=== PATIENT | female | born 1975 | race Caucasian/White ===

== ENCOUNTER 2020-11-05 17:50 | Emergency (ER) | payer BC ==
--- NOTE | 2020-11-05 18:53 | PCM.SN.2 ---
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
[2020-11-05] MEDS: metroNIDAZOLE 500 MG Tab PO ONE (20:50)
--- NOTE | 2020-11-05 22:15 | EDM.PDOC ---
ED HPI GENERAL MEDICAL PROBLEM - General Chief Complaint: ACUTE CARE SURGEON Problem Stated Complaint: UTERINE BLEEDING Time Seen by Provider: 11/05/20 19:10 Source of Information: Reports: Patient History Limitations: Reports: No Limitations - History of Present Illness INITIAL COMMENTS - FREE TEXT/NARRATIVE: Patient presented to the ED with heavy vaginal bleeding which started yesterday. This is her second heavy meses radha month. She also c/o foul smelling vaginal discharge. She denies any fever,chills, N/V, or abdominal pain. - Related Data Allergies Allergy/AdvReac Type Severity Reaction Status Date / Time No Known Allergies Allergy Verified 11/05/20 19:40 Home Meds: Home Meds Citalopram Hydrobromide [Celexa] 20 mg PO BEDTIME 11/05/20 [History] Furosemide [Lasix] 20 mg PO DAILY 11/05/20 [History] Oxybutynin 10 mg PO BEDTIME 11/05/20 [History] medroxyPROGESTERone [Provera] 10 mg PO DAILY #10 tab 11/05/20 [Rx] metroNIDAZOLE [Flagyl] 500 mg PO TID #30 tab 11/05/20 [Rx] Past Medical History - Past Health History Medical/Surgical History: Denies Medical/Surgical History Psychiatric History: Reports: Depression Social & Family History - Tobacco Use Tobacco Use Status *Q: Never Tobacco User - Recreational Drug Use Recreational Drug Use: No ED ROS GENERAL - Review of Systems Review Of Systems: See Below Constitutional: Reports: No Symptoms HEENT: Reports: No Symptoms Respiratory: Reports: No Symptoms Cardiovascular: Reports: No Symptoms Endocrine: Reports: No Symptoms GI/Abdominal: Reports: No Symptoms : Reports: Other (heavy menstrual bleeding) Musculoskeletal: Reports: No Symptoms Skin: Reports: No Symptoms ED EXAM, GENERAL - Physical Exam Exam: See Below Exam Limited By: No Limitations General Appearance: Alert, No Apparent Distress Eye Exam: Bilateral Eye: PERRL Nose: Normal Inspection, Normal Mucosa, No Blood Throat/Mouth: Normal Inspection, Normal Lips, Normal Teeth Head: Atraumatic, Normocephalic Neck: Normal Inspection, Supple, Non-Tender, Full Range of Motion Respiratory/Chest: No Respiratory Distress, Lungs Clear, Normal Breath Sounds Cardiovascular: Normal Peripheral Pulses, Regular Rate, Rhythm, No Edema, No Gallop GI/Abdominal: Normal Bowel Sounds, Soft, Non-Tender, No Organomegaly Back Exam: Normal Inspection, Full Range of Motion Extremities: Normal Inspection, Normal Range of Motion, Non-Tender Neurological: Alert Course - Vital Signs Text/Narrative:: Lab results was discussed with patient Flagyl 500 mg PO x1 Last Recorded V/S: Last Vital Signs Temp 36.7 C 11/05/20 17:50 Pulse 65 11/05/20 17:50 Resp 17 11/05/20 17:50 BP 148/95 H 11/05/20 17:50 Pulse Ox 100 11/05/20 17:50 - Orders/Labs/Meds Labs: Laboratory Tests 11/05/20 11/05/20 11/05/20 Range/Units 19:06 19:06 19:06 WBC 8.9 (3.0-10.3) x10-3/uL RBC 5.20 (3.60-5.20) x10(6)uL Hgb 12.7 (11.4-15.5) g/dL Hct 40.0 (34.2-48.2) % MCV 76.9 (76.7-100.5) fL MCH 24.4 (23.9-33.9) pg MCHC 31.7 L (31.9-34.8) g/dL RDW 16.2 (12.3-16.5) % Plt Count 248 (151-488) x10(3)uL MPV 8.1 (7.1-12.4) fL Neut % (Auto) 68.5 (30.8-76.2) % Lymph % (Auto) 22.6 (18.4-52.1) % [place] % (Auto) 7.1 (4.4-15.7) % Eos % (Auto) 1.4 (0.6-8.1) % Baso % (Auto) 0.4 (0.2-1.5) % Neut # (Auto) 6.1 (1.5-6.3) x10-3/uL Lymph # (Auto) 2.0 (1.0-4.4) x10-3/uL Wake # (Auto) 0.6 (0.3-1.0) x10-3/uL Eos # (Auto) 0.1 (0.0-0.8) x10-3/uL Baso # (Auto) 0.0 (0.0-0.1) x10-3/uL Sodium 142 (135-145) mmol/L Potassium 3.8 (3.5-5.3) mmol/L Chloride 103 (100-110) mmol/L Carbon Dioxide 30 (21-32) mmol/L BUN 16 (7-18) mg/dL Creatinine 0.8 (0.55-1.02) mg/dL Est Cr Clr Drug Dosing TNP Estimated GFR (MDRD) > 60 (>60) BUN/Creatinine Ratio 20.0 (9-20) Glucose 102 (80-116) mg/dL Calcium 8.6 (8.6-10.2) mg/dL Total Bilirubin 0.2 (0.1-1.3) mg/dL AST 17 (5-25) IU/L ALT 26 (12-36) U/L Alkaline Phosphatase 110 (56-112) IU/L C-Reactive Protein 3.7 H* (0.5-0.9) mg/dL Total Protein 7.5 (6.0-8.0) g/dL Albumin 3.5 (3.5-5.2) g/dL Globulin 4.0 g/dL Albumin/Globulin Ratio 0.9 Urine Color (YELLOW) Urine Appearance (CLEAR) Urine pH (5.0-6.5) Ur Specific [place] (1.010-1.025) Urine Protein (NEGATIVE) mg/dL Urine Glucose (UA) (NORMAL) mg/dL Urine Ketones (NEGATIVE) mg/dL Urine Occult Blood (NEGATIVE) Urine Nitrite (NEGATIVE) Urine Bilirubin (NEGATIVE) Urine Urobilinogen (NEGATIVE) mg/dL Ur Leukocyte Esterase (NEGATIVE) Urine RBC (0-5) Urine WBC (0-5) Ur Squamous Epith Cells (NS,R,O) Urine Bacteria (NS) Urine HCG, Qual (NEGATIVE) 11/05/20 11/05/20 Range/Units 19:25 19:25 WBC (3.0-10.3) x10-3/uL RBC (3.60-5.20) x10(6)uL Hgb (11.4-15.5) g/dL Hct (34.2-48.2) % MCV (76.7-100.5) fL MCH (23.9-33.9) pg MCHC (31.9-34.8) g/dL RDW (12.3-16.5) % Plt Count (151-488) x10(3)uL MPV (7.1-12.4) fL Neut % (Auto) (30.8-76.2) % Lymph % (Auto) (18.4-52.1) % Wake % (Auto) (4.4-15.7) % Eos % (Auto) (0.6-8.1) % Baso % (Auto) (0.2-1.5) % Neut # (Auto) (1.5-6.3) x10-3/uL Lymph # (Auto) (1.0-4.4) x10-3/uL [place] # (Auto) (0.3-1.0) x10-3/uL Eos # (Auto) (0.0-0.8) x10-3/uL Baso # (Auto) (0.0-0.1) x10-3/uL Sodium (135-145) mmol/L Potassium (3.5-5.3) mmol/L Chloride (100-110) mmol/L Carbon Dioxide (21-32) mmol/L BUN (7-18) mg/dL Creatinine (0.55-1.02) mg/dL Est Cr Clr Drug Dosing Estimated GFR (MDRD) (>60) BUN/Creatinine Ratio (9-20) Glucose (80-116) mg/dL Calcium (8.6-10.2) mg/dL Total Bilirubin (0.1-1.3) mg/dL AST (5-25) IU/L ALT (12-36) U/L Alkaline Phosphatase (56-112) IU/L C-Reactive Protein (0.5-0.9) mg/dL Total Protein (6.0-8.0) g/dL Albumin (3.5-5.2) g/dL Globulin g/dL Albumin/Globulin Ratio Urine Color Red (YELLOW) Urine Appearance Cloudy (CLEAR) Urine pH 5.0 (5.0-6.5) Ur Specific [place] 1.010 (1.010-1.025) Urine Protein Negative (NEGATIVE) mg/dL Urine Glucose (UA) Normal (NORMAL) mg/dL Urine Ketones Negative (NEGATIVE) mg/dL Urine Occult Blood Large H (NEGATIVE) Urine Nitrite Negative (NEGATIVE) Urine Bilirubin Negative (NEGATIVE) Urine Urobilinogen Normal (NEGATIVE) mg/dL Ur Leukocyte Esterase Negative (NEGATIVE) Urine RBC Packed H (0-5) Urine WBC 0-5 (0-5) Ur Squamous Epith Cells Few H (NS,R,O) Urine Bacteria Few H (NS) Urine HCG, Qual Negative (NEGATIVE) Meds: Medications Discontinued Medications Generic Name Dose Route Start Last Admin Trade Name Katy PRN Reason Stop Dose Admin Metronidazole 500 mg 11/05/20 20:42 11/05/20 20:50 Flagyl PO 11/05/20 20:43 500 mg ONETIME ONE Administration Departure - Departure Time of Disposition: 21:00 Disposition: Home, Self-Care 01 Condition: Good Clinical Impression: Abnormal uterine bleeding, Bacterial vaginosis - Discharge Information Prescriptions: metroNIDAZOLE [Flagyl] 500 mg PO TID #30 tab medroxyPROGESTERone [Provera] 10 mg PO DAILY #10 tab Instructions: Abnormal Uterine Bleeding, Bacterial Vaginosis, [id number] Referrals: Lorenzo Dobbins MD [Primary Care Provider] - Forms: ED Department Discharge Additional Instructions: Please read discharge instructions on abnormal uterine bleeding and bacterial vaginosis Take provera 10 mg daily for 10 days Flagyl/Metronidazole 500 mg 3 times daily for 7 days Follow up with your doctor in a week if your uterine bleeding doesn't improve with the provera Sepsis Event Note (ED) - Evaluation Sepsis Screening Result: No Definite Risk - Focused Exam Vital Signs: Vital Signs Temp Pulse Resp BP Pulse Ox 11/05/20 17:50 36.7 C 65 17 148/95 H 100
== END 2020-11-05 21:00 | disposition home or self-care (01) ==
LOC: FB.ED 17:50
DX: N93.9 Abnormal uterine and vaginal bleeding, unspecified (principal); N76.0 Acute vaginitis; B96.89 Other specified bacterial agents as the cause of diseases classified elsewhere
CPT/HCPCS: 36415; 80053; 81001; 81025; 85025; 86140; 99284; A9270; 99283

== ENCOUNTER 2023-08-10 06:27 | Day surgery (SDC) | payer OTHER ==
[~2023-08-10 06:27] MED LIST: Lactated Ringers 1,000 ML IV SCH; Sodium Chloride 0.9% 10 ML Syringe FLUSH PRN
[2023-08-10] MEDS ORDERED: Propofol 200 MG/20 ML SDV IV ONE (06:28)
[2023-08-10] MEDS ORDERED: Lidocaine 2% 5 ML SDV IV ONE (06:28)
[2023-08-10] MEDS ORDERED: Simethicone Drops 40 MG/0.6 ML 30 ML Bottle ONE (07:11)
== END 2023-08-10 09:20 | disposition home or self-care (01) ==
LOC: FB.SDS 06:27
PROVIDERS: ATTEND Surgery
DX: Z12.11 Encounter for screening for malignant neoplasm of colon (principal); F32.A Depression, unspecified; R73.03 Prediabetes; E66.01 Morbid (severe) obesity due to excess calories; Z68.42 Body mass index [BMI] 45.0-49.9, adult; Z79.84 Long term (current) use of oral hypoglycemic drugs; Z88.1 Allergy status to other antibiotic agents; Z79.899 Other long term (current) drug therapy
CPT/HCPCS: 45378; A9270; J2704; J7120

== ENCOUNTER 2024-04-28 09:56 | Emergency (ER) | payer OTHER ==
[2024-04-28] MEDS: Albuterol 0.083% 2.5 MG/3 ML Neb Soln NEB ONE (10:41)
[2024-04-28 11:54] VITALS: BP 142/68; PULSE 73
== END 2024-04-28 11:54 | disposition home or self-care (01) ==
LOC: FB.ED 09:56
DX: T54.91XA Toxic effect of unspecified corrosive substance, accidental (unintentional), initial encounter (principal); J45.909 Unspecified asthma, uncomplicated; J68.9 Unspecified respiratory condition due to chemicals, gases, fumes and vapors; Z79.899 Other long term (current) drug therapy; Z88.2 Allergy status to sulfonamides; Z88.8 Allergy status to other drugs, medicaments and biological substances
CPT/HCPCS: 71046; 99284; 99285